=== PATIENT | female | born 1995 | race Caucasian/White ===

== ENCOUNTER 2016-11-20 12:41 | Emergency (ER) | payer MEDICAID, OTHER ==
[~2016-11-20] VITALS: Ht 162.6 cm; Wt 72.3 kg
[~2016-11-20 12:41] MED LIST: CYCL5TAB PO
[2016-11-20 12:42] VITALS: BP 110/66; PULSE 60; RESP 16; TEMP 97.8; O2SAT 100
[2016-11-20 13:02] LABS: BLOOD, URINE NEG (NEG); GLUCOSE,URINE NEG (NEG); KETONE, URINE NEG (NEG); METHOD OF COLLECTION CLEAN CATCH; NITRITE,URINE NEG (NEG); PH, URINE 8.5 (5.0-8.5); URINE COLOR YELLOW (YELLW/STRAW)
[2016-11-20 13:06] LABS: COMMENT (UR) CULT NOT INDICATED; CULTURE IF INDICATED CULT NOT INDICATED; SQUAMOUS EPITHELIAL CELL URINE 0-5 /hpf (0-5); WBC, URINE 0-2 /hpf (0-5)
[2016-11-20] MEDS ORDERED: ZOFR4TAB PO (13:52)
--- NOTE | 2016-11-20 13:55 | PD ---
HPI Chief Complaint: I think I am dehydrated Time Seen by Provider: 13:43 Travel History International Travel<30 days: No Contact w/Intl Traveler<30days: No Traveled to known affect area: No History of Present Illness HPI The patient was seen and examined in the presence of the nurse. This patient came to the year because she felt like she was dehydrated. She feels some generalized weakness and fatigue. She vomited one time early this morning. She 's had no diarrhea or fever or respiratory symptoms or abdominal pain. No presyncopal symptoms. She is on sertraline for anxiety. Symptoms severity is mild PFSH Past Medical History ADHD: Yes Anemia: Yes Bipolar Disorder: Yes Developmental Delay: No Diminished Hearing: No Musculoskeletal: Yes (CHRONIC BACK PAIN) Psychiatric: Yes Immunizations Current: Yes Migraines: Yes : 1 Para: 0 Miscarriage: 1 : 0 Social History Alcohol Use: Yes (SOCIAL) Tobacco Use: Yes (04/26 PPD) Substance Use: No Allergies-Medications (Allergen,Severity, Reaction): Coded Allergies: No Known Allergies (Verified , 09/24/15) Reported Meds & Prescriptions Reported Meds & Active Scripts Active Flexeril (Cyclobenzaprine HCl) 5 Mg Tab 5 Mg PO Q8HR PRN Review of Systems General / Constitutional: No: Fever HENT: No: Headaches Cardiovascular: No: Chest Pain or Discomfort Physical Exam Narrative GASTROINTESTINAL: Abdomen soft, non-tender, nondistended. Positive bowel sounds. No hepato-splenomegaly, or palpable masses. No guarding. SKIN: Focused skin assessment reveals no rash or ulcers. Skin is warm and dry. Palpation shows no induration or nodules. CARDIOVASCULAR: Regular rate and rhythm without murmur. Extremities showed no edema or varicosities. Data Data Last Documented VS Vital Signs Date Time Temp Pulse Resp B/P Pulse Ox O2 Delivery O2 Flow Rate FiO2 11/20/16 12:42 97.8 60 16 110/66 100 Room Air Orders Urinalysis - C+S If Indicated (11/20/16 12:51) Ed Urine Pregnancytest Poc (11/20/16 12:51) Ondansetron Odt (Zofran Odt) (11/20/16 14:00) Labs Laboratory Tests Test 11/20/16 12:55 Urine Collection Type CLEAN CATCH Urine Color YELLOW Urine Turbidity CLEAR Urine pH 8.5 Urine Specific [place] 1.015 Urine Protein NEG mg/dL Urine Glucose (UA) NEG mg/dL Urine Ketones NEG mg/dL Urine Occult Blood NEG Urine Nitrite NEG Urine Bilirubin NEG Urine Leukocyte Esterase NEG Urine WBC 0-2 /hpf Urine Squamous Epithelial 0-5 /hpf Cells Microscopic Urinalysis Comment CULT NOT INDICATED MDM Medical Decision Making Medical Screen Exam Complete: Yes Emergency Medical Condition: Yes Medical Record Reviewed: Yes Differential Diagnosis Emesis of , dehydration, gastroenteritis Narrative Course I have reviewed the patient's electronic medical record. This patient is not dehydrated. She is clinically euvolemic. Her exam is normal and vital signs are normal. Urine is clean Urine is negative I gave her 1 dose of Zofran here and a prescription for same Should follow-up with primary care Diagnosis Primary Impression: Generalized weakness Additional Impression: Emesis Qualified Code: R11.10 - Non-intractable vomiting, presence of nausea not specified, unspecified vomiting type Additional Instructions: The patient was advised to follow up with their physician and return if they worsen. Med/Other Pt SpecificInfo: Prescription(s) given Scripts Ondansetron (Zofran)4 Mg Tab4 Mg PO Q6HR PRN (NAUSEA OR VOMITING) #12 TAB Ref 0 Prov:Brandan Sales MD 11/20/16 Disposition: 01 DISCHARGE HOME Condition: Stable Brandan Sales MD Nov 20, 2016 13:55
[2016-11-20] MEDS ORDERED: SERT25TA83 PO (13:56)
[2016-11-20] MEDS ORDERED: birth control (13:56)
[2016-11-20] MEDS ORDERED: ONDANSETRON ODT 4 MG TAB PO ONE (14:00)
[2016-11-20 14:15] VITALS: BP 112/61; PULSE 63; RESP 14; O2SAT 97
== END 2016-11-20 14:15 | disposition home or self-care (01) ==
LOC: PHED 12:41
DX: R53.1 Weakness (principal); R11.10 Vomiting, unspecified; R53.83 Other fatigue; F17.200 Nicotine dependence, unspecified, uncomplicated; Z86.59 Personal history of other mental and behavioral disorders; Z86.2 Personal history of diseases of the blood and blood-forming organs and certain disorders involving the immune mechanism; Z87.39 Personal history of other diseases of the musculoskeletal system and connective tissue; Z86.69 Personal history of other diseases of the nervous system and sense organs
CPT/HCPCS: 81001; 84703; 99283